=== PATIENT | female | born 1985 | race Two or more races ===

== ENCOUNTER → 2017-12-21 | Outpatient (CLI) | payer BC ==
[2017-12-21 16:42] LABS: BACTERIA (WET MOUNT) 4+ BACTERIA SEEN; EPITHELIALS (WET MOUNT) 4+ EPITHELIALS SEEN; T.VAGINALIS (WET MOUNT) NO TRICHOMONAS SEEN; WBCS (WET MOUNT) 1+ WBCS SEEN; YEAST (WET MOUNT) NO YEAST SEEN
[2017-12-21 18:08] LABS: CHLAM PCR NOT DETECTED (NOT DETECT); GON PCR NOT DETECTED (NOT DETECT)
== END ==
LOC: LAB 16:22
PROVIDERS: ATTEND Nurse Practitioner Acute Care
DX: N89.8 Other specified noninflammatory disorders of vagina (principal)
CPT/HCPCS: 87210; 87491; 87591

== ENCOUNTER → 2018-02-09 | Outpatient (CLI) | payer BC, MEDICAID ==
[2018-02-11 07:31] LABS: MUMPS IGG AB 60.8 AU/mL (Immune >10.9); RUBELLA IGG AB 3.93 index (Immune >0.99); RUBEOLA IGG AB <25.0 AU/mL (Immune >29.9)
== END ==
LOC: OD 11:52
PROVIDERS: ATTEND Family Medicine
DX: Z11.1 Encounter for screening for respiratory tuberculosis (principal)
CPT/HCPCS: 36415; 86480; 86735; 86762; 86765

== ENCOUNTER → 2019-05-29 | Outpatient (CLI) | payer SELFPAY ==
[2019-05-29 17:08] LABS: HEMOGLOBIN 11.8 g/dL (12.0-15.5); MEAN CORPUSCULAR HEMOGLOBIN 27.1 pg (27.0-33.4); MEAN CORPUSCULAR HGB CONC 32.6 g/dL (32.0-36.0); MEAN CORPUSCULAR VOLUME 83 fl (80-97); PLATELET COUNT 301 10^3/uL (150-450); RED BLOOD COUNT 4.34 10^6/uL (3.72-5.28); WHITE BLOOD COUNT 4.9 10^3/uL (4.0-10.5)
== END ==
LOC: OD 16:25
PROVIDERS: ATTEND Specialist
DX: E46 Unspecified protein-calorie malnutrition (principal); E11.8 Type 2 diabetes mellitus with unspecified complications; D64.9 Anemia, unspecified; E78.2 Mixed hyperlipidemia; R53.83 Other fatigue; K21.9 Gastro-esophageal reflux disease without esophagitis; Z72.0 Tobacco use; E55.9 Vitamin D deficiency, unspecified
CPT/HCPCS: 36415; 82306; 83970; 85027

== ENCOUNTER 2019-06-27 17:04 | Emergency (ER) | payer BC, MEDICAID ==
--- NOTE | 2019-06-27 18:17 | ER Document Report ---
HPI - HPI Patient complains to provider of: Low back pain Time Seen by Provider: 06/27/19 17:41 Onset: Other - 4 days ago Onset/Duration: Persistent Quality of pain: Achy Severity: Moderate Pain Level: 3 Context: This 33-year-old female presents emergency department with complaints of low back pain that started approximately 4 days ago. She reports her back started hurting right before she went to bed. She reports increased pain since then. Denies urinary bowel incontinence or retention. Denies paresthesia. Denies history of IV drug use or steroid use. Denies trauma. Denies heavy lifting denies turning suddenly. Denies fever vomiting diarrhea. Denies pain with void. She reports her back just started hurting. Denies history of back pain. 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 She denies heavy lifting. Reports she just goes run takes vital signs now. Associated Symptoms: None Exacerbated by: Denies Relieved by: Denies Similar symptoms previously: No Recently seen / treated by doctor: No - REPRODUCTIVE Reproductive: DENIES: : Past Medical History - General Information source: Patient Last Menstrual Period: 06/18 - Social History Smoking Status: Unknown if Ever Smoked Cigarette use (# per day): No Frequency of alcohol use: None Drug Abuse: None Occupation: [employer] Lives with: Family Family History: DM, Hypertension, Malignancy Patient has suicidal ideation: No Patient has homicidal ideation: No - Medical History Medical History: Negative Psychiatric Medical History: Reports: Hx Depression Past Surgical History: Reports: Hx Section - x 2 - Immunizations Hx Diphtheria, Pertussis, Tetanus Vaccination: Yes Vertical Provider Document - CONSTITUTIONAL Agree With Documented VS: Yes Exam Limitations: No Limitations General Appearance: WD/WN, No Apparent Distress - INFECTION CONTROL TRAVEL OUTSIDE OF THE [place] IN LAST 30 DAYS: No - HEENT HEENT: Atraumatic, Normocephalic - NECK Neck: Normal Inspection, Supple. negative: Lymphadenopathy-Left, Lymphadenopathy-Right - RESPIRATORY Respiratory: Breath Sounds Normal, No Respiratory Distress - CARDIOVASCULAR Cardiovascular: Regular Rate - GI/ABDOMEN Gastrointestinal: Abdomen Soft - BACK Back: Normal Inspection - No obvious deformity no swelling no erythema no warmth good distal movement and sensation stands on toes as well as back on heels without problems. Ambulates without problem. No weakness - MUSCULOSKELETAL/EXTREMETIES Musculoskeletal/Extremeties: MAEW, FROM, Non-Tender - NEURO Level of Consciousness: Awake, Alert, Appropriate Motor/Sensory: No Motor Deficit - DERM Integumentary: Warm, Dry Adult Front & Back Diagram: 1 - Patient complains of pain No erythema no swelling no warmth no signs of infection no obvious deformity good distal movement. Course - Re-evaluation Re-evalutation: 06/27/19 18:23 33-year-old female with complaints of low back pain with no injury no past medical history of pain. No symptoms such as urinary bowel incontinence or re tention. Patient was instructed on Motrin and muscle relaxers. Also instructed to follow-up with her primary care provider for evaluation and possible MRI as indicated. She was instructed on red flags of back pain and instructed to return to the emergency department emergently for these symptoms. She verbalized understanding to all instruction low suspicion for any meningitis, fracture, expanding/ruptured AAA, cauda equina syndrome, epidural mass lesion/abscess, herniated disc causing severe spinal stenosis, or other systemic infection at this time. Patient is aware that this condition can change from initial presentation and that she needs monitor symptoms closely for any acute changes. Dictation of this chart was performed using voice recognition software; therefore, there may be some unintended grammatical errors. - Vital Signs Vital signs: Temp Pulse Resp BP Pulse Ox 97.9 F 68 18 130/72 H 95 06/27/19 17:09 06/27/19 17:09 06/27/19 17:09 06/27/19 17:06/27/19 17:09 Discharge - Discharge Clinical Impression: Low back pain Condition: Stable Disposition: HOME, SELF-CARE Instructions: Use of Bnbq-Dka-Mrwirsu Ibuprofen ([facility]), Ice Packs ([facility]), Low Back Pain ([facility]), Muscle Relaxers ([facility]) Additional Instructions: *You have been evaluated for low back pain *Take medication as prescribed *Rest/Ice packs as indicated *Follow up with a primary care provider within one week for recheck *Return to ED for worsening condition, changes, needs Monitor your blood pressure. Your blood pressure was elevated today. This may be because you were anxious, in pain or because you need medication. It is important to follow up with your primary care provider for full evaluation. Prescriptions: Cyclobenzaprine HCl [Flexeril 5 mg Tablet] 5 mg PO TID #15 tablet Forms: Elevated Blood Pressure, Return to Work Referrals: CINDY MENARD FNP-C [Primary Care Provider] - Follow up in 3-5 days
[2019-06-27] MEDS ORDERED: KETOROLAC TROMETHAMINE 60 MG/2 ML SDV IM ONE (19:13)
[2019-06-27] MEDS ORDERED: LIDOCAINE 5% (700 MG) TRANSDERMAL ADH..PATCH TP ONE (19:15)
[2019-06-27 19:58] VITALS: BP 142/92
--- NOTE | 2019-06-27 20:40 | ER Document Report ---
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 I have evaluated the patient at bedside. presentation of a well appearing morbidly obese patient complaining of acute nontraumatic back pain. No rapid progression of symptoms, systemic symptoms including fevers, chills, weight loss, history of recent bacterial infection, bilateral symptoms, numbness, weakness, difficulty walking, urinary retention or bowel incontinence, dysuria or frequency, personal history of cancer, immunosuppression, diabetes, known AAA, or history of IV drug use. Exam is without pulsatile abdominal mass, and patient has symmetric and intact lower extremity strength, sensation, and reflexes without clonus. 2+ symmetric medial malleolar and dorsalis pedis pulses Based on history and physical, I have a very low suspicion of a concerning etiology of pain including epidural compression syndrome, spinal infection, transverse myelitis, malignancy, abdominal aortic aneurysm, renal colic, acute lower extremity claudication, neurogenic claudication, ankylosing spondylitis, or other intra-abdominal process. Due to absence of concerning risk factors in history and physical as well as absence of rapidly progressive, severe, or bilateral symptoms, will defer imaging at this point. I discussed with patient typical use of Toradol, Lidoderm patches and muscle relaxers. Patient advised that she would like a Toradol injection. States her last menstrual cycle was on 06/18/2019 and she is not sexually active. Patient voices that she is driving home So Flexeril was not administered in the emergency department. Patient also declines a Lidoderm patch, states "they never work." Patient is in agreement there is no need for imaging at this time. Discussed following up with primary care provider and inevitably orthopedics for MRI.
== END 2019-06-27 19:59 | disposition home or self-care (01) ==
LOC: ER 17:04
DX: M54.5 Low back pain (principal); E66.01 Morbid (severe) obesity due to excess calories
CPT/HCPCS: 99283; 96372; J1885

== ENCOUNTER → 2019-11-07 | Outpatient (CLI) | payer BC | LOC: OD 15:46 | PROVIDERS: ATTEND Physician Assistant | DX: E46 Unspecified protein-calorie malnutrition (principal); K91.2 Postsurgical malabsorption, not elsewhere classified; E11.8 Type 2 diabetes mellitus with unspecified complications; R63.4 Abnormal weight loss; E66.01 Morbid (severe) obesity due to excess calories ==

== ENCOUNTER → 2020-01-15 | Outpatient (CLI) | payer BC ==
[2020-01-15 09:26] LABS: HEMOGLOBIN 12.7 g/dL (12.0-15.5); MEAN CORPUSCULAR HEMOGLOBIN 29.6 pg (27.0-33.4); MEAN CORPUSCULAR HGB CONC 33.4 g/dL (32.0-36.0); MEAN CORPUSCULAR VOLUME 89 fl (80-97); PLATELET COUNT 295 10^3/uL (150-450); RED BLOOD COUNT 4.28 10^6/uL (3.72-5.28); RED CELL DISTRIBUTION WIDTH 13.9 % (11.5-14.0); WHITE BLOOD COUNT 3.7 10^3/uL (4.0-10.5)
[2020-01-15 09:49] LABS: ALBUMIN 3.7 g/dL (3.5-5.0); ALKALINE PHOSPHATASE 89 U/L (38-126); ANION GAP 5 (5-19); ASPARTATE AMINO TRANSFERASE 22 U/L (14-36); BILIRUBIN,DIRECT 0.2 mg/dL (0.0-0.4); BILIRUBIN,TOTAL 0.4 mg/dL (0.2-1.3); BLOOD UREA NITROGEN 9 mg/dL (7-20); CALCIUM 8.9 mg/dL (8.4-10.2); CARBON DIOXIDE 27 mmol/L (22-30); CHLORIDE 105 mmol/L (98-107); GLUCOSE 91 mg/dL (75-110); IRON 79.9 ug/dL (37-170); POTASSIUM 4.4 mmol/L (3.6-5.0); TOTAL PROTEIN 7.1 g/dL (6.3-8.2)
== END ==
LOC: OD 08:47
PROVIDERS: ATTEND Physician Assistant
DX: E46 Unspecified protein-calorie malnutrition (principal); K91.2 Postsurgical malabsorption, not elsewhere classified; E11.8 Type 2 diabetes mellitus with unspecified complications; R63.4 Abnormal weight loss; E66.01 Morbid (severe) obesity due to excess calories; E53.1 Pyridoxine deficiency
CPT/HCPCS: 36415; 80053; 82306; 82607; 82728; 82746; 83036; 83540; 83735; 83970; 84425; 85027